=== PATIENT | female | born 1995 | race Caucasian/White ===

== ENCOUNTER 2021-01-23 16:00 | Emergency (ER) | payer OTHER ==
[~2021-01-23] VITALS: Ht 167.6 cm; Wt 99.3 kg
--- NOTE | 2021-01-23 17:34 | PHYS DOC ---
General Adult EDM: Chief Complaint: HEAD INJURY/TRAUMA HPI: HPI: 25-year-old female 23 weeks presents with left ear laceration and syncopal episode. The patient was at work bending down under a close rack and when she stood up she caught her ear on a metal chip and it lacerated her ear. The patient went into the bathroom to clean it up and while she was in there she is not sure what happened but she had a syncopal episode. She was found on the ground by colleagues. Since she is , she came to the ER for further evaluation. She has never had a syncopal episode before. She is feeling normal at this time except for some ear pain. Review of Systems: Review of Systems: Constitutional: Denies fever or chills Eyes: Denies change in visual acuity HENT: Denies nasal congestion or sore throat Respiratory: Denies cough or shortness of breath Cardiovascular: Denies chest pain or edema GI: Denies abdominal pain, nausea, vomiting, bloody stools or diarrhea : Denies dysuria Musculoskeletal: Denies back pain or joint pain Integument: Laceration left ear Neurologic: Denies headache, focal weakness or sensory changes Endocrine: Denies polyuria or polydipsia Lymphatic: Denies swollen glands Psychiatric: Denies depression or anxiety Allergies: Allergies: Allergies Coded Allergies Type Severity Reaction Last Updated Verified amoxicillin Allergy Unknown 01/23/21 Yes Physical Exam: PE: Constitutional: Well developed, well nourished, no acute distress, non-toxic appearance. [] HENT: Normocephalic, bilateral external ears normal, oropharynx moist, no oral exudates, nose normal. [] Eyes: PERRLA, EOMI, conjunctiva normal, no discharge. [] Neck: Normal range of motion, no tenderness, supple, no stridor. [] Cardiovascular: Heart rate regular rhythm, no murmur [] Lungs & Thorax: Bilateral breath sounds clear to auscultation [] Abdomen: Bowel sounds normal, soft, no tenderness, no masses, no pulsatile masses. [] Skin: Laceration left lateral ear [] Back: No tenderness, no CVA tenderness. [] Extremities: No tenderness, no cyanosis, no clubbing, ROM intact, no edema. [] Neurologic: Alert and oriented X 3, normal motor function, normal sensory function, no focal deficits noted. [] Psychologic: Affect normal, judgement normal, mood normal. [] EKG: EKG: [] Radiology/Procedures: Radiology/Procedures: [] Heart Score: C/O Chest Pain: No Risk Factors: Risk Factors: DM, Current or recent (<one month) smoker, HTN, HLP, family history of CAD, obesity. Risk Scores: Score 0 - 3: 2.5% MACE over next 6 weeks - Discharge Home Score 4 - 6: 20.3% MACE over next 6 weeks - Admit for Clinical Observation Score 7 - 10: 72.7% MACE over next 6 weeks - Early Invasive Strategies Course & Med Decision Making: Course & Med Decision Making Pertinent Labs and Imaging studies reviewed. (See chart for details) Bedside ultrasound performed by Dr. Aguilar showed live intrauterine with a heart rate of 155. No abnormality seen. Patient was greatly reassured. Her syncopal episode was likely vasovagal syncope due to seeing her own blood. She is stable for discharge at this time. [] Dragon Disclaimer: Dragon Disclaimer: This electronic medical record was generated, in whole or in part, using a voice recognition dictation system. Laceration Repair Lac Repair Indication: [] Lateral left ear laceration Procedure: I obtained verbal consent from the patient for tissue adhesive repair for left ear laceration. The wound was thoroughly irrigated with normal saline under pressure. No foreign bodies were found. I placed 2 layers of Dermabond skin adhesive over the wound. There was reasonable skin approximation. Bleeding was controlled. No dressing was applied. Tetanus was updated in the ED. Total repaired wound length: Half centimeter Other Items: None The patient tolerated the procedure well. Complications: None Departure Departure: Impression: Primary Impression: Laceration of ear Qualified Codes: S01.312A - Laceration without foreign body of left ear, initial encounter Additional Impression: Qualified Codes: Z3A.23 - 23 weeks gestation of Disposition: HOME / SELF CARE / HOMELESS Condition: STABLE Referrals: PCP,NO (PCP) PRASANTH COLEMAN DO Jan 23, 2021 17:34
[2021-01-23] MEDS ORDERED: DIPH,PERTUSS(ACELL),TET VAC/PF 0.5 ML SYRINGE. VAX IM ONE (18:30)
[2021-01-23 18:42] VITALS: BP 133/66
--- NOTE | 2021-01-23 18:45 | EKG ---
[address] [address] Test Date: 2021-01-23 Test Time: 17:32:56 Pat Name: SUSI BIRMINGHAM Department: Room: Gender: F [employer] Developer: BAUDILIO : 1995 Requested By: PRASANTH COLEMAN Order Number: [id number] Reading MD: Measurements Intervals Perkins Rate: 70 P: 30 OR: 154 QRS: 36 QRSD: 82 T: 15 QT: 406 QTc: 441 Interpretive Statements SINUS RHYTHM NORMAL ECG RI6.02 No previous ECG available for comparison
== END 2021-01-23 18:43 | disposition home or self-care (01) ==
LOC: ER 16:00
DX: O26.892 Other specified pregnancy related conditions, second trimester (principal); S01.312A Laceration without foreign body of left ear, initial encounter; R55 Syncope and collapse; Z3A.23 23 weeks gestation of pregnancy; W23.0XXA Caught, crushed, jammed, or pinched between moving objects, initial encounter; Y93.89 Activity, other specified; Y92.89 Other specified places as the place of occurrence of the external cause; Y99.8 Other external cause status
CPT/HCPCS: 12011; 90471; 90715; 93005; 99283-25